=== PATIENT | female | born 1960 | race Caucasian/White ===

== ENCOUNTER 2018-06-04 15:29 | Emergency (ER) | payer OTHER ==
[~2018-06-04] VITALS: Ht 162.6 cm; Wt 136.1 kg
[~2018-06-04 15:29] MED LIST: ENALAPRIL MALEAT5 MG; METFORMIN HCL500 MG; ONGLYZA2.5 MG; SYNTHROID50 MCG
== END 2018-06-04 17:32 | disposition home or self-care (01) ==
LOC: ER 15:29
DX: G51.0 Bell's palsy (principal)

== ENCOUNTER 2021-01-10 13:43 | Emergency (ER) | payer OTHER ==
[~2021-01-10] VITALS: Ht 160 cm; Wt 127.9 kg
[2021-01-10] MEDS ORDERED: PEPCID AC20 MG PO (17:15)
[2021-01-10] MEDS ORDERED: LEVSIN/SL0.125 MG SL (17:15)
== END 2021-01-10 17:34 | disposition home or self-care (01) ==
LOC: ER 13:43
DX: R10.12 Left upper quadrant pain (principal); E11.9 Type 2 diabetes mellitus without complications

== ENCOUNTER 2021-11-26 23:55 | Inpatient (IN) | payer OTHER ==
[~2021-11-26] VITALS: Ht 160 cm; Wt 128.8 kg
[~2021-11-26 23:55] MED LIST changes: +LEVSIN/SL0.125 MG SL; +PEPCID AC20 MG PO
[2021-11-27] MEDS ORDERED: LANTUS SOL100 UNIT/1 (00:06)
[2021-11-27] MEDS ORDERED: GLUMETZA1000 MG PO (00:07)
[2021-11-27] MEDS ORDERED: GLIMEPIRIDE2 M1 PO (00:07)
== END 2021-12-02 20:43 | disposition home or self-care (01) | DRG 390 ==
LOC: ER 23:55 → MEDI 11-27 10:44 → SEC-K 11-27 11:15 → MEDJ 11-27 19:43 → MEDI 11-27 20:58
PROVIDERS: ADMIT Internal Medicine; ATTEND Internal Medicine
PROC: BW21YZZ Computerized Tomography (CT Scan) of Abdomen and Pelvis using Other Contrast (ICD-10-PCS; 2021-11-27)
PROC: 02HV33Z Insertion of Infusion Device into Superior Vena Cava, Percutaneous Approach (ICD-10-PCS; principal; 2021-11-30)
DX: K56.699 Other intestinal obstruction unspecified as to partial versus complete obstruction (principal); E86.0 Dehydration; E87.6 Hypokalemia; I10 Essential (primary) hypertension; E03.9 Hypothyroidism, unspecified; E11.9 Type 2 diabetes mellitus without complications

== ENCOUNTER 2022-02-06 14:23 | Emergency (ER) | payer OTHER ==
[~2022-02-06] VITALS: Ht 160 cm; Wt 127.5 kg
[~2022-02-06 14:23] MED LIST changes: +GLIMEPIRIDE2 M1 PO; +GLUMETZA1000 MG PO; +LANTUS SOL100 UNIT/1
[2022-02-06] MEDS ORDERED: LIPITOR20 MG PO (14:42)
[2022-02-06] MEDS ORDERED: LOSARTAN POTASS50 MG PO (14:42)
[2022-02-06] MEDS ORDERED: HYDROCHLOROTH12.5 MG PO (14:43)
[2022-02-06] MEDS ORDERED: METAXALONE400 MG PO (16:25)
[2022-02-06] MEDS ORDERED: CELEBREX100 MG PO (16:25)
== END 2022-02-06 16:41 | disposition home or self-care (01) ==
LOC: ER 14:23
DX: M54.2 Cervicalgia (principal); M25.511 Pain in right shoulder; E11.9 Type 2 diabetes mellitus without complications; Z79.4 Long term (current) use of insulin; Z79.84 Long term (current) use of oral hypoglycemic drugs; I10 Essential (primary) hypertension; Z88.8 Allergy status to other drugs, medicaments and biological substances